=== PATIENT | male | born 1995 | race Caucasian/White ===

== ENCOUNTER 2025-04-05 08:12 | Emergency (ER) | payer SELFPAY ==
[~2025-04-05] VITALS: Ht 165.1 cm; Wt 72.6 kg
[2025-04-05 08:18] VITALS: BP 144/94; TEMP 98.3; O2SAT 97
[2025-04-05] MEDS ORDERED: CEFTRIAXONE 500 MG VIAL ONE (08:35)
[2025-04-05] MEDS ORDERED: LIDOCAINE 1% INJ 50 ML MDV IJ ONE (08:36)
[2025-04-05] MEDS ORDERED: AZITHROMYCIN 250 MG TABLET ONE (08:36)
[2025-04-05] MEDS: AZITHROMYCIN 250 MG TABLET PO ONE (08:43)
[2025-04-05] MEDS: CEFTRIAXONE 500 MG VIAL IM ONE (08:43)
== END 2025-04-05 08:54 | disposition home or self-care (01) ==
LOC: ER 08:17
DX: N34.2 Other urethritis (principal)
CPT/HCPCS: 99283; 96372; J3490; J0696